=== PATIENT | male | born 1950 | race Caucasian/White ===

== ENCOUNTER 2018-05-09 20:48 | Inpatient (IN) | payer OTHER ==
[~2018-05-09] VITALS: Ht 160 cm; Wt 90.3 kg
[2018-05-09] MEDS ORDERED: SODIUM CHLORIDE 0.9% 1000ML BAG (SEPSIS BOLUS) IV ONE (21:15)
[2018-05-09] MEDS ORDERED: PIPERACILLIN/TAZ 3.375G PREMIX 50 ML IV ONE (21:15)
[2018-05-09] MEDS ORDERED: VANCOMYCIN 1 G PREMIX 200 ML IV ONE (21:15)
[2018-05-09 22:16] LABS: BASOPHILS % 0.2 % (0.0-2.0); HEMATOCRIT. 41.2 % (42.0-52.0); HEMOGLOBIN. 13.9 g/dL (14.0-18.0); LYMPHOCYTES % 3.9 % (20.0-50.0); MEAN CORPUSCULAR HEMOGLOBIN 31.5 pg (28.0-32.0); MEAN CORPUSCULAR VOLUME 93.4 fL (80.0-94.0); MEAN PLATELET VOLUME 10.2 fl (7.4-10.4); MONOCYTES % 3.9 % (2.0-8.0); PLATELET 166 x1000/uL (130-400); RED BLOOD CELL COUNT 4.41 mill/uL (4.7-6.1); RED CELL DISTRIBUTION WIDTH 13.9 % (11.6-14.6)
[2018-05-09 22:22] LABS: INR 1.1; PROTHROMBIN TIME 11.1 sec (9.1-11.1)
[2018-05-09 22:25] LABS: CHLORIDE 97 mEq/L (98-107)
[2018-05-09 22:57] LABS: CLARITY URINE CLEAR (CLEAR); COLOR URINE YELLOW (YELLOW); KETONES URINE 2+ (NEGATIVE); LEUKOCYTE ESTERASE URINE NEGATIVE (NEGATIVE); NITRITE URINE NEGATIVE (NEGATIVE); OCCULT BLOOD URINE NEGATIVE (NEGATIVE); PH URINE 5.5 (4.5-8.0); PROTEIN URINE 1+ (NEGATIVE); SPECIFIC GRAVITY URINE 1.026 (1.005-1.030); UROBILINOGEN URINE 0.2 E.U./dL (0.2-1.0)
[2018-05-10] VITALS (21 sets, daily range): BP systolic 91–150; BP diastolic 40–98
[2018-05-10] MEDS ORDERED: ACETAMINOPHEN 650MG SUPP PR ONE (00:45)
[2018-05-10] MEDS ORDERED: IOHEXOL-350 100 ML BOTTLE ONE (03:41)
[2018-05-10] MEDS ORDERED: ACETAMINOPHEN 325MG TABLET PO PRN (07:15)
[2018-05-10] MEDS ORDERED: IPRATROPIUM/ALBUTEROL 0.5-3(2.5)MG/3ML NEB INH PRN (07:15)
[2018-05-10] MEDS ORDERED: ONDANSETRON HCL 4MG/2ML INJ IV PRN (07:15)
[2018-05-10] MEDS ORDERED: MAGNESIUM/ALUMINUM HYDROXIDE/SIMETHICONE 30ML UDC PO PRN (07:15)
[2018-05-10 08:41] LABS: *BARBITURATES SCREEN URINE NEGATIVE (NEGATIVE); *BENZODIAZEPINES SCREEN URINE NEGATIVE (NEGATIVE); *COCAINE SCREEN URINE NEGATIVE (NEGATIVE)
[2018-05-10 08:43] LABS: *AMPHETAMINES SCREEN URINE NEGATIVE (NEGATIVE); CANNABINOID URINE SCREEN NEGATIVE (NEGATIVE); METHADONE URINE SCREEN NEGATIVE (NEGATIVE); OPIATES URINE SCREEN NEGATIVE (NEGATIVE); PHENCYCLIDINE URINE SCREEN NEGATIVE (NEGATIVE)
[2018-05-10] MEDS: VANCOMYCIN 750 MG PREMIX 150 ML IV SCH ×2 (09:18→21:17)
[2018-05-10] MEDS: PIPERACILLIN/TAZ 3.375G PREMIX 50 ML IV SCH ×3 (09:19→23:28)
[2018-05-10] MEDS ORDERED: INFLUENZA VIRUS VACCINE(AFLURIA) 0.5ML SYR IM ONE (10:00)
[2018-05-10] MEDS ORDERED: tamulosin PO (10:41)
[2018-05-10] MEDS ORDERED: LURA20TA PO (10:41)
[2018-05-10] MEDS ORDERED: DAPA5TAB MT (10:41)
[2018-05-10] MEDS ORDERED: SITA100T11 MT (10:41)
[2018-05-10] MEDS ORDERED: METF-816 MT (10:41)
[2018-05-10] MEDS ORDERED: keppra PO (10:50)
[2018-05-10] MEDS ORDERED: [UNRECOGNIZED DRUG - OTHER] PO (10:50)
[2018-05-10] MEDS ORDERED: FOLIC ACID 1 MG (10:50)
[2018-05-10] MEDS ORDERED: [UNRECOGNIZED DRUG - OTHER] (10:50)
[2018-05-10] MEDS ORDERED: AZIL40TA MT (10:50)
[2018-05-10] MEDS ORDERED: GABA300S PO (10:50)
[2018-05-10] MEDS ORDERED: FENTANYL CITRATE/PF 50MCG/ML 2ML VIAL ONE (13:42)
[2018-05-10] MEDS ORDERED: LIDOCAINE HCL 1% 20ML VIAL (Pyxis) INJ ONE (14:10)
[2018-05-10] MEDS ORDERED: SODIUM BICARBONATE 4% (2.4MEQ) 5ML VIAL IV ONE (14:10)
[2018-05-10] MEDS ORDERED: FENTANYL CITRATE/PF 50MCG/ML 2ML VIAL IV ONE (14:30)
[2018-05-10 17:08] LABS: CREATINE KINASE MB FRACTION 9.1 ng/mL (0.5-3.6)
[2018-05-10 17:30] LABS: HEPATITIS B SURFACE ANTIGEN NEGATIVE
[2018-05-10 17:58] LABS: HEPATITIS B CORE AB IGM NEGATIVE
[2018-05-10 18:00] LABS: HEPATITIS A AB IGM NEGATIVE (NEGATIVE)
[2018-05-10 18:06] LABS: HEMATOCRIT 38.6 % (42.0-52.0); HEMOGLOBIN 12.8 g/dL (14.0-18.0)
[2018-05-10 18:26] LABS: PROSTRATE SPECIFIC AG TOTAL 3.43 ng/mL (0.0-4.0)
[2018-05-10 18:30] LABS: CARCINO EMBRYONIC ANTIGEN < 0.5 ng/ml
[2018-05-10 23:52] LABS: CREATINE KINASE MB FRACTION 9.3 ng/mL (0.5-3.6)
[2018-05-11] VITALS (12 sets, daily range): BP systolic 123–159; BP diastolic 65–89
[2018-05-11] MEDS: PIPERACILLIN/TAZ 3.375G PREMIX 50 ML IV SCH ×2 (08:47→16:23)
[2018-05-11] MEDS: SODIUM CHLORIDE 0.9% 1,000 ML IV SCH (10:04)
[2018-05-11] MEDS: VANCOMYCIN 1 G PREMIX 200 ML IV SCH ×2 (11:06→21:34)
[2018-05-12] VITALS (10 sets, daily range): BP systolic 104–165; BP diastolic 45–83
[2018-05-12] MEDS: PIPERACILLIN/TAZ 3.375G PREMIX 50 ML IV SCH ×3 (00:41→15:57)
[2018-05-12] MEDS: SODIUM CHLORIDE 0.9% 1,000 ML IV SCH (04:22)
[2018-05-12] MEDS: VANCOMYCIN 1 G PREMIX 200 ML IV SCH ×2 (10:38→21:39)
[2018-05-12 17:31] LABS: CHLORIDE 103 mEq/L (98-107)
[2018-05-13] VITALS (11 sets, daily range): BP systolic 122–176; BP diastolic 49–90
[2018-05-13] MEDS: PIPERACILLIN/TAZ 3.375G PREMIX 50 ML IV SCH ×2 (01:03→10:13)
[2018-05-13 06:07] LABS: BASOPHILS % 0.7 % (0.0-2.0); HEMATOCRIT. 34.4 % (42.0-52.0); HEMOGLOBIN. 11.7 g/dL (14.0-18.0); LYMPHOCYTES % 15.6 % (20.0-50.0); MEAN CORPUSCULAR HEMOGLOBIN 31.5 pg (28.0-32.0); MEAN CORPUSCULAR VOLUME 92.8 fL (80.0-94.0); MEAN PLATELET VOLUME 11.1 fl (7.4-10.4); MONOCYTES % 8.7 % (2.0-8.0); PLATELET 78 x1000/uL (130-400); RED BLOOD CELL COUNT 3.71 mill/uL (4.7-6.1); RED CELL DISTRIBUTION WIDTH 13.8 % (11.6-14.6)
[2018-05-13 06:39] LABS: CHLORIDE 104 mEq/L (98-107)
[2018-05-13 06:42] LABS: CREATINE KINASE 95 IU/L (39-308)
[2018-05-13] MEDS: VANCOMYCIN 1 G PREMIX 200 ML IV SCH ×2 (10:13→22:21)
[2018-05-14] VITALS: BP 159/73
[2018-05-14] MEDS: LORAZEPAM 2MG/ML CPJ IV PRN ×3 (00:32→20:43)
[2018-05-14 04:00] VITALS: BP 161/59
[2018-05-14] MEDS: CLONIDINE 0.1MG TABLET PO PRN ×2 (04:23→20:43)
[2018-05-14] MEDS: VANCOMYCIN 1 G PREMIX 200 ML IV SCH (04:56)
[2018-05-14 08:00] VITALS: BP 146/49
[2018-05-14 12:00] VITALS: BP 154/62
[2018-05-14 13:30] LABS: HEMATOCRIT. 32.8 % (42.0-52.0); HEMOGLOBIN. 11.2 g/dL (14.0-18.0); MEAN CORPUSCULAR HEMOGLOBIN 31.7 pg (28.0-32.0); MEAN CORPUSCULAR VOLUME 93.2 fL (80.0-94.0); MEAN PLATELET VOLUME 9.8 fl (7.4-10.4); PLATELET 107 x1000/uL (130-400); RED BLOOD CELL COUNT 3.52 mill/uL (4.7-6.1); RED CELL DISTRIBUTION WIDTH 14.1 % (11.6-14.6)
[2018-05-14 13:43] LABS: CHLORIDE 102 mEq/L (98-107)
[2018-05-14 13:59] LABS: PLATELET ESTIMATE SLIGHTLY DECREASED
[2018-05-14 16:00] VITALS: BP 179/70
[2018-05-14] MEDS: VANCOMYCIN 1250MG in DEXTROSE 5% WATER 250ML IV SCH (17:56)
[2018-05-14 20:00] VITALS: BP 169/53
[2018-05-15] VITALS (7 sets, daily range): BP systolic 157–182; BP diastolic 54–170
[2018-05-15] MEDS: VANCOMYCIN 1250MG in DEXTROSE 5% WATER 250ML IV SCH ×2 (05:09→17:42)
[2018-05-15] MEDS: CLONIDINE 0.1MG TABLET PO PRN (05:09)
[2018-05-15] MEDS: AMLODIPINE 2.5MG TABLET PO SCH ×2 (09:35→20:22)
== END 2018-05-15 20:50 | disposition home or self-care (01) | DRG 871 ==
LOC: ER 20:48 → 5EST 23:58 → EDBEDREQ 05-10 00:02 → EDBEDREQTM 05-10 00:02 → ENRESERV 05-10 00:50 → 6EST 05-13 15:13
PROVIDERS: ADMIT Internal Medicine Nephrology; ATTEND Internal Medicine Nephrology
PROC: 0FB13ZX Excision of Right Lobe Liver, Percutaneous Approach, Diagnostic (ICD-10-PCS; principal; 2018-05-10)
PROC: 02HV33Z Insertion of Infusion Device into Superior Vena Cava, Percutaneous Approach (ICD-10-PCS; 2018-05-15)
PROC: B5181ZA Fluoroscopy of Superior Vena Cava using Low Osmolar Contrast, Guidance (ICD-10-PCS; 2018-05-15)
PROC: B548ZZA Ultrasonography of Superior Vena Cava, Guidance (ICD-10-PCS; 2018-05-15)
DX: A41.9 Sepsis, unspecified organism (principal); E43 Unspecified severe protein-calorie malnutrition; G93.41 Metabolic encephalopathy; J96.01 Acute respiratory failure with hypoxia; L03.115 Cellulitis of right lower limb; M62.82 Rhabdomyolysis; J98.11 Atelectasis; C22.7 Other specified carcinomas of liver; E87.2 Acidosis; K76.9 Liver disease, unspecified; E11.9 Type 2 diabetes mellitus without complications; E66.01 Morbid (severe) obesity due to excess calories; F03.90 Unspecified dementia, unspecified severity, without behavioral disturbance, psychotic disturbance, mood disturbance, and anxiety; I11.9 Hypertensive heart disease without heart failure; M60.9 Myositis, unspecified; D64.9 Anemia, unspecified; M21.271 Flexion deformity, right ankle and toes; I25.10 Atherosclerotic heart disease of native coronary artery without angina pectoris; L40.9 Psoriasis, unspecified; R16.0 Hepatomegaly, not elsewhere classified; L53.9 Erythematous condition, unspecified; Z68.35 Body mass index [BMI] 35.0-35.9, adult; Z87.81 Personal history of (healed) traumatic fracture; Z79.84 Long term (current) use of oral hypoglycemic drugs; Z79.899 Other long term (current) drug therapy
CPT/HCPCS: 36415; 36569; 51702; 70551; 71045; 71275; 73552; 73590; 73718; 74174; 76937; 76942; 77001; 80048; 80061; 80076; 80202; 80305; 82105; 82378; 82550; 82553; 82962; 83605; 83615; 84134; 84145; 84153; 84484; 85014; 85018; 85651; 86140; 86301; 86705; 86709; 86803; 87340; 87804; 88307; 90686; 93005; 93306; 93970; 96365; 96367; 97116; 97162; 97530; 99291; A6261; C1725; C1893; J2060; J2543; J3010; J3370; J3490; J7030; J7040; J7050; J7060; J7620; Q9967; G0103